=== PATIENT | male | born 1950 | race American Indian/Alaskan Native ===

== ENCOUNTER 2017-03-07 06:18 | Observation (INO) | payer OTHER ==
[~2017-03-07 06:18] MED LIST: ANCEF/NS 1 GM/50 ML 1 GM/50 ML BAG IV NR; MORPHINE IV PRN; NORCO 5/325 PO PRN
[2017-03-07] MEDS ORDERED: ZOFRAN IV PRN (07:38)
[2017-03-07] MEDS ORDERED: MORPHINE IV PRN (07:38)
--- NOTE | 2017-03-07 07:38 | Anesthesia Day of Surgery ---
Anesthesia Day of Surgery - Day of Surgery Patient Examined: Yes Patient H&P Reviewed: Yes Patient is NPO: Yes Beta Blockers: Yes
--- NOTE | 2017-03-07 07:39 | Anesthesia Consultation ---
Anesthesia Consult and Med Hx Date of service: 03/07/17 - Airway Anesthetic Teeth Evaluation: Good, Partials ROM Head & Neck: Adequate Mental/Hyoid Distance: Adequate Mallampati Class: Class II Intubation Access Assessment: Probably Good - Pulmonary Exam CTA: Yes - Cardiac Exam Cardiac Exam: RRR - Pre-Operative Health Status ASA Pre-Surgery Classification: ASA3 Proposed Anesthetic Plan: General - Pulmonary Hx Smoking: No Hx Asthma: No Hx Sleep Apnea: No - Cardiovascular System Hx Hypertension: Yes - Endocrine Hx Insulin Dependent Diabetes: Yes - Other Systems Hx Cancer: No
[2017-03-07] MEDS ORDERED: SUBLIMAZE ONE (09:27)
[2017-03-07] MEDS ORDERED: XYLOCAINE MPF 2% ONE (09:27)
[2017-03-07] MEDS ORDERED: ZEMURON IV ONE (09:27)
[2017-03-07] MEDS ORDERED: MARCAINE 0.5% 30 ML INFILTRATI ONE (09:28)
[2017-03-07] MEDS ORDERED: DIPRIVAN 10 MG/ML IV ONE (09:28)
[2017-03-07] MEDS ORDERED: FLAGYL 500 MG/100 ML 0 MG/0 ML BAG IV ONE (09:45)
[2017-03-07] MEDS ORDERED: ANCEF/STERILE WATER 2 GM/20 ML 2 GM/20 ML SYRINGE IV ONE (09:45)
[2017-03-07] MEDS ORDERED: TORADOL ONE (09:55)
[2017-03-07] MEDS ORDERED: PEPCID PO NR (10:00)
[2017-03-07] MEDS ORDERED: VERSED IV NR (10:00)
[2017-03-07] MEDS ORDERED: NACL 0.9% 1000 ML 1,000 ML IV SCH (10:00)
[2017-03-07] MEDS ORDERED: FLAGYL 500 MG/100 ML 500 MG/100 ML BAG IV NR (10:00)
[2017-03-07] MEDS ORDERED: ANCEF/STERILE WATER 2 GM/20 ML IV NR (10:00)
[2017-03-07] MEDS ORDERED: DILAUDID ONE (10:35)
[2017-03-07] MEDS ORDERED: DECADRON ONE (10:37)
[2017-03-07] MEDS ORDERED: NACL 0.9% IR ONE (10:47)
[2017-03-07] MEDS ORDERED: TORADOL IV ONE (10:47)
[2017-03-07] MEDS ORDERED: MARCAINE 0.5% INFILTRATI ONE (10:48)
[2017-03-07] MEDS ORDERED: NACL 0.9% 1000 ML IR ONE (10:52)
[2017-03-07] MEDS ORDERED: NEOSTIGMINE ONE (11:16)
[2017-03-07] MEDS ORDERED: ROBINUL ONE (11:16)
--- NOTE | 2017-03-07 13:40 | Post Anesthesia Evaluation ---
- Post Anesthesia Evaluation Patient Participated: Yes Airway Patent: Yes Stable Respiratory Function: Yes Nausea/Vomiting: No Temp > 96.8F: Yes Pain Manageable: Yes Adequeate Hydration: Yes Anesthesia Complications: No Block Receding Appropriately: Not Applicable Patient on Ventilator: No
[2017-03-07] MEDS ORDERED: NOVOLOG SUB-Q SCH (15:00)
[2017-03-07 17:15] VITALS: BP 165/84
== END 2017-03-07 18:45 | disposition home or self-care (01) ==
LOC: OR 06:18 → 3B-SURG 11:34
PROVIDERS: ADMIT Specialist; ATTEND Specialist
DX: K42.9 Umbilical hernia without obstruction or gangrene (principal); K40.20 Bilateral inguinal hernia, without obstruction or gangrene, not specified as recurrent
CPT/HCPCS: 49585; 49650; 82962; C1726; C1781; G0378; J0690; J1100; J1170; J1885; J2250; J2704; J2710; J3010; J7030